=== PATIENT | male | born 1960 | race Caucasian/White ===

== ENCOUNTER 2019-06-29 08:37 | Day surgery (SDC) | payer OTHER ==
[~2019-06-29] VITALS: Ht 183 cm; Wt 136.0 kg
[2019-06-29] VITALS (12 sets, daily range): BP systolic 121–136; BP diastolic 70–78; PULSE 83–94; TEMP 99.2
[2019-06-29 09:29] LABS: HEMATOCRIT 48.7 % (42.0-52.0); HEMOGLOBIN 16.4 g/dl (13.5-18.0); MEAN CELL VOLUME 87 fl (80.0-100.0); MEAN CORPUSCULAR HEMOGLOBIN 29 pg (27.0-31.0); MEAN CORPUSCULAR HGB CONC 34 g/dl (33.0-37.0); MEAN PLATELET VOLUME 10.4 fl (7.4-10.4); PLATELET COUNT 211 K/mm3 (130-400); REDCELL DISTRIBUTION WIDTH-CV 13.1 % (11.5-14.5)
[2019-06-29] MEDS ORDERED: GLUCOPHAGE1000 MG PO (09:38)
[2019-06-29] MEDS ORDERED: ALTACE 5MG5 MG PO (09:39)
[2019-06-29] MEDS ORDERED: ZOCOR 40MG40 MG PO (09:39)
[2019-06-29 09:40] LABS: INR 0.9 (0.8-3.0); PROTHROMBIN TIME 9.9 SECONDS (9.7-12.8)
[2019-06-29] MEDS ORDERED: FARXIGA10 PO (09:40)
[2019-06-29] MEDS ORDERED: TRESIBA100 UNIT/1 SQ (09:40)
[2019-06-29] MEDS ORDERED: EPA FISH OIL1 SGL PO (09:41)
[2019-06-29] MEDS ORDERED: NEXIUM 40MG40 MG PO (09:41)
[2019-06-29] MEDS ORDERED: THE MEDICINE S200 M2 PO (09:41)
[2019-06-29] MEDS ORDERED: DYMISTA1 SPR NS (09:42)
[2019-06-29] MEDS ORDERED: UROXATRAL10 M1 PO (09:42)
[2019-06-29 09:43] LABS: PARTIAL THROMBOPLASTIN TIME 30.7 SECONDS (26.0-37.0)
[2019-06-29] MEDS ORDERED: VITAMIN B COMPL1 SGL PO (09:43)
[2019-06-29] MEDS ORDERED: PRANDIN1 MG PO (09:43)
[2019-06-29] MEDS ORDERED: NATURAL IRON65 MG PO (09:44)
[2019-06-29] MEDS ORDERED: MAGNESIUM500 MG PO (09:44)
[2019-06-29] MEDS ORDERED: TRULICITY1.5 MG/0.5 SQ (09:45)
[2019-06-29 09:48] LABS: CALCIUM 8.8 mg/dL (8.4-10.2); CREATININE, serum 0.81 (0.66-1.25); POTASSIUM 4.4 mmol/L (3.4-5.0)
[2019-06-29] MEDS ORDERED: ASPIRIN E.C. 8181 MG PO (09:55)
[2019-06-29] MEDS ORDERED: TOPROL XL 25MG25 MG PO (09:55)
--- NOTE | 2019-06-29 10:16 | NUR ---
SEE MERGE FOR MEDICATION ADMINISTRATION TIMES AND INTRA AND POST SEDATION ASSESSMENTS.
[2019-06-29] MEDS ORDERED: IMDUR 30MG30 MG/TAB PO (11:14)
--- NOTE | 2019-06-29 11:15 | NUR ---
Pt returned to EU 9 per bed s/p heart cath. Pt resting well.
--- NOTE | 2019-06-29 11:18 | NUR ---
BEDSIDE HAND OFF REPORT TO CHEMA [place]. PT IS ALERT AND ORIENTED. BLOOD PRESSURE WITHIN NORMAL LIMITS. TR BAND WITH 12 IN THE BAND. HEMOSTASIS NOTED. PT HAS NO NEEDS OR CONCERNS AT THIS TIME.
--- NOTE | 2019-06-29 14:00 | NUR ---
R radial band removed and cath site remains soft C/D/I. Site covered with bandaid and gauze and wrapped with coban. Pt savanna well. Pt has ambulated, voided and savanna PO intake s n/v. PIV removed with catheter intact.
--- NOTE | 2019-06-29 14:28 | NUR ---
Pt discharged per w/c by nurse with [employer].
== END 2019-06-29 14:28 | disposition home or self-care (01) ==
LOC: COL.CAR 08:37
PROVIDERS: Internal Medicine Cardiovascular Disease
DX: I25.10 Atherosclerotic heart disease of native coronary artery without angina pectoris (principal); R94.39 Abnormal result of other cardiovascular function study; D64.9 Anemia, unspecified; E11.9 Type 2 diabetes mellitus without complications; I10 Essential (primary) hypertension; E78.5 Hyperlipidemia, unspecified
CPT/HCPCS: J1644; J2250; J3010; Q9967

== ENCOUNTER 2020-06-10 10:30 | Day surgery (SDC) | payer OTHER ==
[~2020-06-10] VITALS: Ht 182.9 cm; Wt 138.4 kg
[2020-06-10] VITALS (9 sets, daily range): BP systolic 115–152; BP diastolic 61–82; PULSE 81–99; TEMP 98–98.8
[~2020-06-10 10:30] MED LIST: ALTACE 5MG5 MG PO; ASPIRIN E.C. 8181 MG PO; DYMISTA1 SPR NS; EPA FISH OIL1 SGL PO; FARXIGA10 PO; GLUCOPHAGE1000 MG PO; IMDUR 30MG30 MG/TAB PO; MAGNESIUM500 MG PO; NATURAL IRON65 MG PO; NEXIUM 40MG40 MG PO; PRANDIN1 MG PO; THE MEDICINE S200 M2 PO; TOPROL XL 25MG25 MG PO; TRESIBA100 UNIT/1 SQ; TRULICITY1.5 MG/0.5 SQ; UROXATRAL10 M1 PO; VITAMIN B COMPL1 SGL PO; ZOCOR 40MG40 MG PO
[2020-06-10] MEDS ORDERED: LIPITOR 40MG TA40 MG PO (10:58)
[2020-06-10] MEDS ORDERED: LOPRESSOR 550 MG/TAB PO (10:59)
[2020-06-10] MEDS ORDERED: LOFIBRA160 MG PO (11:00)
[2020-06-10] MEDS ORDERED: NORVASC 5MG5 MG/TAB PO (11:01)
[2020-06-10] MEDS ORDERED: PLAVIX 75MG TAB75 MG PO (11:02)
[2020-06-10] MEDS ORDERED: JARDIANCE25 PO (11:02)
[2020-06-10] MEDS ORDERED: PROTONIX 40MG T40 MG PO (11:03)
[2020-06-10] MEDS ORDERED: ACCUPRIL10 M1 PO (11:04)
[2020-06-10] MEDS ORDERED: NOVOLOG FLEX100 U/ML SQ (11:07)
[2020-06-10] MEDS ORDERED: COLACE 100100 MG/CAP PO (14:12)
[2020-06-10] MEDS ORDERED: NORCO 325 MG-51 TAB PO (14:12)
--- NOTE | 2020-06-10 17:09 | NUR ---
PT TO ROOM 348 PER BED WITH REPORT FROM [facility]. PT IS DROWSEY BUT AROUSABLE. LUNGS CLEAR. BOWEL SOUNDS PRESENT. IMPLANT CDI WITH GAUZE AND MESH UNDERWARE ON. DU CATHETER TO DD. IV TO .
--- NOTE | 2020-06-10 17:29 | NUR ---
PT ON 2 L O2 PNC.
[2020-06-11 03:35] VITALS: BP 138/68; PULSE 77; TEMP 98.4
--- NOTE | 2020-06-11 06:30 | NUR ---
PATIENT REPORTS NOT SLEEPING WELL THROUGHOUT THE NIGHT. DENIES PAIN. NO OTHER NEEDS AT THIS TIME.
[2020-06-11 07:36] VITALS: BP 130/79; PULSE 88; TEMP 98.4
[2020-06-11 08:04] VITALS: BP 134/66; PULSE 85; TEMP 98.7
[2020-06-11 12:10] VITALS: BP 115/60; PULSE 82; TEMP 98.3
--- NOTE | 2020-06-11 14:05 | NUR ---
DISCHARGE INSTRUCTIONS REVIEWED WITH PATEINT. QUESTIONS ANSWERED. PT LEFT AMBULATORY.
--- NOTE | 2020-06-11 15:00 | NUR ---
Initial visit; Patient preparing to be discharged. Grease Man wished him well and Yanira Abraham.
== END 2020-06-11 14:07 | disposition home or self-care (01) ==
LOC: SDCO 10:30 → SURG 16:56 → SDCO 06-11 14:07
DX: N52.9 Male erectile dysfunction, unspecified (principal); I10 Essential (primary) hypertension; E78.5 Hyperlipidemia, unspecified; I25.10 Atherosclerotic heart disease of native coronary artery without angina pectoris; Z95.1 Presence of aortocoronary bypass graft; E11.9 Type 2 diabetes mellitus without complications; K21.9 Gastro-esophageal reflux disease without esophagitis; Z79.4 Long term (current) use of insulin; Z79.82 Long term (current) use of aspirin; Z79.02 Long term (current) use of antithrombotics/antiplatelets; E78.00 Pure hypercholesterolemia, unspecified; G47.33 Obstructive sleep apnea (adult) (pediatric); F17.290 Nicotine dependence, other tobacco product, uncomplicated; Z20.828 Contact with and (suspected) exposure to other viral communicable diseases; D64.9 Anemia, unspecified
CPT/HCPCS: OP; 99223; A4314; C1813; J1100; J1580; J1815; J1885; J2405; J2704; J3010; J3370; J7030; J7050